=== PATIENT | female | born 1990 | race Caucasian/White ===

== ENCOUNTER → 2024-01-21 08:05 | Outpatient (CLI) | payer OTHER, SELFPAY ==
--- NOTE | 2024-01-21 08:07 | DI.US.S_ITS ---
PROCEDURE: US OB <= 14 WEEKS FETUS INDICATIONS: viability OUTSIDE/PRIOR DATING DATA: Last menstrual period (LMP): 11/17/2023. LMP-based estimated date of delivery (TAYLA): 08/23/2024. First dating scan (date and location): Today. Estimated date of delivery (TAYLA) from first dating scan: 08/20/2024. TECHNIQUE: Real-time scanning was performed of the fetus and maternal pelvic organs, with image documentation. Endovaginal scanning was also performed to better visualize the fetus and maternal ovaries. COMPARISON: None. FINDINGS: Heart rate is 182 beats per minute. [place]-rump length is 2.4 centimeters corresponding ultrasound age of 9 weeks. Yolk sac is seen. IMPRESSION: Living intrauterine gestation at an ultrasound age of 9 weeks. Dictated by: Davdi Workman M.D. on 01/21/2024 at 9:23 Approved by: David Workman M.D. on 01/21/2024 at 9:27
== END ==
PROVIDERS: Referring Provider Student in an Organized Health Care Education/Training Program; Visit Provider Student in an Organized Health Care Education/Training Program
DX: Z34.81 Encounter for supervision of other normal pregnancy, first trimester (principal); Z3A.09 9 weeks gestation of pregnancy
CPT/HCPCS: 76801

== ENCOUNTER → 2024-01-28 12:08 | Outpatient (CLI) | payer OTHER, SELFPAY ==
[2024-01-28 12:51] LABS: Add Manual Diff / Slide Review NO; Basophils Absolute Auto 100 /uL (0-100); Basophils Percent Auto 0.6 % (0-2); Eosinophils Absolute Auto 0 /uL (0-450); Eosinophils Percent Auto 0.5 % (2-4); Hematocrit 43.1 % (36-46); Hemoglobin 14.8 g/dL (12.0-16.0); Lymphocytes Absolute Auto 2100 /uL (1100-4500); Lymphocytes Percent Auto 24.1 % (25-40); Mean Corpuscular HGB Conc 34.3 % (30-36); Mean Corpuscular Hemoglobin 29.7 PG (26-34); Mean Corpuscular Volume 86.7 fL (80-100); Monocytes Absolute Auto 400 /uL (0-900); Monocytes Percent Auto 4.5 % (3-14); Neutrophils Absolute Auto 6000 /uL (1500-7000); Neutrophils Percent Auto 70.3 % (50-75); Platelet Count 228 X10^3/uL (150-400); Red Blood Cell Count 4.98 X10^6/uL (4.0-5.2); Red Cell Distribution Width 12.2 % (11.6-14.8); White Blood Cell Count 8.5 X10^3/uL (4.5-11.0)
[2024-01-28 13:13] LABS: Appearance Urine UA CLEAR; Bilirubin Urine UA NEGATIVE (NEGATIVE); Color Urine UA YELLOW; Glucose Urine UA NEGATIVE (Negative); Ketones Urine UA NEGATIVE (NEGATIVE); Leukocyte Esterase Urine UA 1+ (NEGATIVE); Nitrite Urine UA NEGATIVE (Negative); Occult Blood Urine UA NEGATIVE (Negative); Protein Urine UA NEGATIVE (Negative); Urobilinogen Urine UA 0.2 E.U./dL (0.2)
[2024-01-28 13:23] LABS: Alanine Aminotransferase 36 IU/L (<35); Albumin 4.3 g/dL (3.5-5.0); Albumin Globulin Ratio 1.6 (1.0-2.8); Alkaline Phosphatase 44 U/L (38-126); Aspartate Aminotransferase 28 IU/L (14-36); BUN Creatinine Ratio 13.2 (6-22); Bilirubin Total 0.5 mg/dL (0.2-1.3); Blood Urea Nitrogen 10 mg/dL (7-17); Calcium 8.9 mg/dL (8.4-10.2); Carbon Dioxide 20 mmol/L (22-32); Chloride 105 mmol/L (98-107); Estimated Glomerular Filt Rate > 60 mL/min (>60); Globulin 2.7 g/dL (1.7-4.1); Glucose 132 mg/dL (70-100); HEMOLYSIS < 15 (0-50); Potassium 3.8 mmol/L (3.4-5.1); Sodium 137 mmol/L (137-145); pH Urine UA 6.5 (4.5-8.0)
[2024-01-28 13:26] LABS: Urine Volume 10mL (spun)
[2024-01-28 13:27] LABS: Bacteria Urine None Seen; RBC Urine None Seen (0-5/HPF); Squamous Epithelial Cell Urine 0-1 /HPF (0-5/HPF); WBC Urine 1-5/HPF (0-5/HPF)
[2024-01-28 13:31] LABS: Hemoglobin A1C% w Est Avg Glu 4.8 % (4.0-6.0)
[2024-01-28 14:24] LABS: Urine N gonorrhoeae NOT DETECTED
[2024-01-28 14:28] LABS: Urine Chlamydia NOT DETECTED
[2024-01-28 17:35] LABS: Hepatitis B Surface Antigen NEGATIVE s/c (NEGATIVE); Rubella Antibody IgG 20.9 IU/mL (>15)
[2024-01-28 17:48] LABS: HIV 1 & 2 Ab/Ag 4th Gen Combo NEGATIVE (NEGATIVE); Hep C Virus Ab w/Reflex Quant NEGATIVE s/c (NEGATIVE)
[2024-01-29 08:10] LABS: RPR Screen Non Reactive (Non Reactive)
[2024-01-29 11:58] LABS: Varicella IgG Antibody 1456 index (Immune >165)
== END ==
LOC: LAB 12:09
PROVIDERS: PCP Student in an Organized Health Care Education/Training Program; Referring Provider Student in an Organized Health Care Education/Training Program; Visit Provider Student in an Organized Health Care Education/Training Program
DX: O09.511 Supervision of elderly primigravida, first trimester (principal); E28.2 Polycystic ovarian syndrome; Z98.84 Bariatric surgery status
CPT/HCPCS: 36415; 80053; 80055; 81003; 81015; 83036; 86787; 86803; 86850; 86900; 86901; 87086; 87389; 87491; 87591

== ENCOUNTER → 2024-04-16 12:58 | Outpatient (CLI) | payer OTHER, SELFPAY ==
[2024-04-16 13:27] LABS: Hematocrit 38.6 % (36-46); Hemoglobin 13.3 g/dL (12.0-16.0)
[2024-04-16 13:57] LABS: Alanine Aminotransferase 33 IU/L (<35); Albumin 3.2 g/dL (3.5-5.0); Albumin Globulin Ratio 1.4 (1.0-2.8); Alkaline Phosphatase 38 U/L (38-126); Aspartate Aminotransferase 23 IU/L (14-36); BUN Creatinine Ratio 10.2 (6-22); Bilirubin Total 0.6 mg/dL (0.2-1.3); Blood Urea Nitrogen 6 mg/dL (7-17); Calcium 8.6 mg/dL (8.4-10.2); Carbon Dioxide 21 mmol/L (22-32); Chloride 108 mmol/L (98-107); Estimated Glomerular Filt Rate > 60 mL/min (>60); Globulin 2.3 g/dL (1.7-4.1); Glucose 83 mg/dL (70-100); HEMOLYSIS < 15 (0-50); Potassium 3.9 mmol/L (3.4-5.1); Sodium 135 mmol/L (137-145); Total Protein 5.5 g/dL (6.3-8.2)
[2024-04-16 13:58] LABS: Iron 184 ug/dL (37-170)
[2024-04-16 14:06] LABS: Transferrin 227 mg/dL (206-381)
[2024-04-16 14:26] LABS: Ferritin 48 ng/mL (6-137)
[2024-04-16 15:08] LABS: Folate 9.9 ng/mL (2.76-20.0); HEMOLYSIS < 15 (0-50); Vitamin B12 495 pg/mL (239-931)
[2024-04-18 03:13] LABS: Percent Iron Saturation 65 % (15-50); Total Iron Binding Capacity 284 ug/dL (265-497)
== END ==
PROVIDERS: Referring Provider Student in an Organized Health Care Education/Training Program; Visit Provider Student in an Organized Health Care Education/Training Program
DX: Z98.84 Bariatric surgery status (principal); Z3A.24 24 weeks gestation of pregnancy
CPT/HCPCS: 36415; 80053; 82306; 82607; 82728; 82746; 83540; 83550; 83735; 85014; 85018

== ENCOUNTER → 2024-06-02 14:08 | Outpatient (CLI) | payer OTHER, SELFPAY ==
--- NOTE | 2024-06-02 14:09 | DI.US.S_ITS ---
PROCEDURE: US OB LIMITED INDICATIONS: Growth Scan M4hchcs OUTSIDE/PRIOR DATING DATA: Last menstrual period (LMP): 11/17/2023. LMP-based estimated date of delivery (TAYLA): 08/23/2024. First dating scan (date and location): 01/21/2024. Estimated date of delivery (TAYLA) from first dating scan: 08/20/2024. The calculations are made using the clinical TAYLA of 08/23/2024. TECHNIQUE: Real-time scanning was performed of the fetus, with image documentation and biometric measurements. Endovaginal scanning: Obtained COMPARISON: [facility], , OB <= 14 WEEKS FETUS, 01/21/2024, 8:38. FINDINGS: General: A single living intrauterine gestation is present. Presentation: Vertex. Placenta: Placental position is fundal , without previa. Amniotic fluid index: 17.7 cm, normal range is 5-24 cm. Single deepest vertical pocket is 6.3 cm. heart rate: 147 beats per minute. Maternal cervical canal: 3.7 cm long. Normal lower limit is 2.5 cm. biometrics: Biparietal diameter: 7.4 cm 29 weeks 5 days Head circumference: 26.8 cm 29 weeks 1 day Abdominal circumference: 24.8 cm 29 weeks 0 days Femur length: 5.5 cm 28 weeks 6 days Clinically estimated gestational age: 28 weeks 2 days Composite gestational age from present scan: 29 weeks 1 day Estimated weight and percentile: 1324 g 66th percentile Other: Not applicable. IMPRESSION: Single live intrauterine with gestational age of 29 weeks 1 day. growth and YAMILET are within normal limits. We strive to produce accurate, complete, and clear reports of imaging services. To assist us in improving patient care, this report was composed using standard report templates and voice recognition software. Therefore, it may contain abnormal punctuation, insertions and/or omissions. Occasional wrong-word or sound-alike substitutions may occur. Though we review the report and make efforts to correct it, we do recommend that the report be read carefully in proper context to recognize any text inaccuracies. Dictated by: Kya Gay M.D. on 06/02/2024 at 20:23 Approved by: Kya Gay M.D. on 06/02/2024 at 20:25
== END ==
LOC: US 14:09
PROVIDERS: PCP Student in an Organized Health Care Education/Training Program; Referring Provider Student in an Organized Health Care Education/Training Program; Visit Provider Student in an Organized Health Care Education/Training Program
DX: O26.13 Low weight gain in pregnancy, third trimester (principal); O99.843 Bariatric surgery status complicating pregnancy, third trimester; O99.213 Obesity complicating pregnancy, third trimester; Z3A.29 29 weeks gestation of pregnancy; Z68.42 Body mass index [BMI] 45.0-49.9, adult
CPT/HCPCS: 76815

== ENCOUNTER → 2024-06-04 | Outpatient (CLI) | payer OTHER, SELFPAY | PROVIDERS: PCP Student in an Organized Health Care Education/Training Program; Referring Provider Internal Medicine; Visit Provider Internal Medicine | DX: Z23 Encounter for immunization (principal) | CPT/HCPCS: 90471; 90656 ==

== ENCOUNTER → 2024-06-18 11:49 | Outpatient (CLI) | payer OTHER, SELFPAY | PROVIDERS: PCP Student in an Organized Health Care Education/Training Program; Visit Provider Student in an Organized Health Care Education/Training Program | DX: B37.9 Candidiasis, unspecified (principal); R31.9 Hematuria, unspecified; Z34.80 Encounter for supervision of other normal pregnancy, unspecified trimester | CPT/HCPCS: 87086; 87210 ==

== ENCOUNTER 2024-06-20 21:27 | Outpatient (CLI) | payer OTHER, SELFPAY ==
--- NOTE | 2024-06-20 21:52 | DI.US.S_ITS ---
PROCEDURE: US OB LIMITED INDICATIONS: bleeding OUTSIDE/PRIOR DATING DATA: Last menstrual period (LMP): 11/17/2023. LMP-based estimated date of delivery (TAYLA): 08/23/2024. First dating scan (date and location): 01/21/2024. Estimated date of delivery (TAYLA) from first dating scan: 08/20/2024. The calculations are made using the menstrual TAYLA of 08/23/2024. TECHNIQUE: Real-time scanning was performed of the fetus, with image documentation. COMPARISON: [facility], OB <= 14 WEEKS FETUS, 01/21/2024, 8:38. [facility], OB LIMITED, 06/02/2024, 14:19. FINDINGS: A single live intrauterine gestation is present. Presentation: Breech. Placenta: Placental position is right fundal, without previa. No findings of placental abruption can be seen Amniotic fluid index: 16 cm, normal range is 5-24 cm. Single deepest vertical pocket is 5.3 cm. heart rate: 135 beats per minute. Maternal cervical canal: 3.5 cm long. On these images, no funneling of the internal cervical os can be seen. Clinically estimated gestational age: 30 weeks 6 days IMPRESSION: No imaging explanation is found for this patient's presenting symptoms. Normal appearing cervix, 3.5 cm. No funneling of the internal cervical os can be seen. No findings of placental abruption are seen. Dictated by: Jacob Pillai M.D. on 06/20/2024 at 21:41 Approved by: Jacob Pillai M.D. on 06/20/2024 at 21:43
== END 2024-06-20 22:45 | disposition home or self-care (01) ==
LOC: LABOR 21:29 → OB 06-22 06:26
PROVIDERS: PCP Student in an Organized Health Care Education/Training Program; Referring Provider Student in an Organized Health Care Education/Training Program; Visit Provider Student in an Organized Health Care Education/Training Program
DX: O46.93 Antepartum hemorrhage, unspecified, third trimester (principal); Z3A.30 30 weeks gestation of pregnancy; Z98.84 Bariatric surgery status
CPT/HCPCS: 59025; 76815; G0378; G0379

== ENCOUNTER → 2024-07-01 07:30 | Outpatient (CLI) | payer OTHER, SELFPAY ==
--- NOTE | 2024-07-01 07:30 | DI.US.S_ITS ---
PROCEDURE: US OB LIMITED INDICATIONS: EFW OUTSIDE/PRIOR DATING DATA: Last menstrual period (LMP): 11/17/2023. LMP-based estimated date of delivery (TAYLA): 08/23/2024. Working TAYLA First dating scan (date and location): 01/21/2024. Estimated date of delivery (TAYLA) from first dating scan: 08/20/2024. TECHNIQUE: Real-time scanning was performed of the fetus, with image documentation. COMPARISON: [facility], OB LIMITED, 06/20/2024, 22:21. FINDINGS: A single living intrauterine gestation is present. Presentation: Breech. Placenta: Placental position is posterior, without previa. Amniotic fluid index: 20.1 cm, normal range is 5-24 cm. Single deepest vertical pocket is 6.9 cm. heart rate: 140 beats per minute. Maternal cervical canal: 3 cm long. Normal lower limit is 2.5 cm. Clinically estimated gestational age: 32 weeks and 3 days Head circumference is 30 cm, 33 weeks and 1 day BPD is 8.1 cm, 32 weeks and 5 days Abdominal circumference is 28.1 cm, 32 weeks and 1 day Femur length is 6.4 cm, 33 weeks and 1 day Estimated gestational age from initial scan: 32 weeks and 6 days. EFW is at the 45th percentile, 2010 g. IMPRESSION: EFW at the 45th percentile. Normal YAMILET. Living intrauterine gestation in breech presentation. Dictated by: David Workman M.D. on 07/01/2024 at 13:47 Approved by: David Workman M.D. on 07/01/2024 at 13:48
== END ==
PROVIDERS: PCP Student in an Organized Health Care Education/Training Program; Referring Provider Student in an Organized Health Care Education/Training Program; Visit Provider Student in an Organized Health Care Education/Training Program
DX: O32.1XX0 Maternal care for breech presentation, not applicable or unspecified (principal); Z3A.32 32 weeks gestation of pregnancy
CPT/HCPCS: 76815

== ENCOUNTER 2024-07-13 07:20 | Outpatient (CLI) | payer OTHER, SELFPAY ==
--- NOTE | 2024-07-13 08:13 | P.TNLD_ITS ---
Visit Information Visit Information Date of evaluation: 07/13/24 Primary OB Provider: Tatyana Steven On-call OB Provider: Tatyana Steven Reason for Evaluation: Yes non-stress test Comments/Additional reasons for admission: NST for BMI, hx of gastric sleeve PFSH Medical History (Updated 02/16/24 @ 15:48 by Kellie Rivera) GERD (gastroesophageal reflux disease) PCOS (polycystic ovarian syndrome) (~2007) Sfxbi-Vqmbbndyu-Bnmjp (WPW) pattern Surgical History (Updated 02/16/24 @ 15:48 by Kellie Rivera) Anesthesia H/O endoscopy [place] teeth extracted History of cholecystectomy (~2018) History of cardiac radiofrequency ablation H/O gastric sleeve (~2022) Family History (Updated 02/16/24 @ 15:51 by Kellie Rivera) Mother Hypertension Skin cancer Father Lung cancer Hypertension Heart disease Myocardial infarction Grandmother Breast cancer Grandfather Pancreatic cancer Grandmother Heart disease Hx of CABG Grandfather Diabetes mellitus Kidney failure Aunt Hx of migraines Family/Other Multiple sclerosis Brother No problems noted. 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/hazards: Yes special brent needs: No travel history: over 6 months ago seatbelt use: always helmet use: Yes water heater temp set < 120 deg: Yes working smoke detector in home: Yes fire extinguisher in home: Yes carbon monox detector in home: Yes firearms in home: Yes (Will get a safe before baby is born) do you feel safe at home: Yes Smoking Status: Former smoker (quit a long time ago) Tobacco: How many years used: 1 second hand exposure: No alcohol intake: former (rarely when not ) substance use type: does not use during the past year weight has: decreased > 10 lbs (Gastric sleeve surgery 12/2022) well-balanced diet: daily or most days daily servings fruits/ve or more times/day caffeine: Yes (aware of 200mg limit) Type(s) of exercise: walking and occasional exercise Evaluation Evaluation Baseline heart rate: 135 Variability: Average (6-10) monitor accelerations: Present Monitor Decelerations: Absent Category of Tracing: Reactive Diagnosis, Plan/Disposition Plan/Disposition Plan: Reactive NST @ 34 weeks. Continue weekly. OB Disposition: home
== END 2024-07-13 08:15 | disposition home or self-care (01) ==
LOC: LABOR 08:47 → OB 07-16 10:48
PROVIDERS: PCP Student in an Organized Health Care Education/Training Program; Referring Provider Student in an Organized Health Care Education/Training Program; Visit Provider Student in an Organized Health Care Education/Training Program
DX: O99.843 Bariatric surgery status complicating pregnancy, third trimester (principal); Z3A.34 34 weeks gestation of pregnancy
CPT/HCPCS: 59025; G0378; G0379

== ENCOUNTER 2024-07-20 07:19 | Outpatient (CLI) | payer OTHER, SELFPAY | END 2024-07-20 08:22 | disposition home or self-care (01) | LOC: LABOR 08:01 → OB 07-21 11:07 | PROVIDERS: PCP Student in an Organized Health Care Education/Training Program; Referring Provider Student in an Organized Health Care Education/Training Program; Visit Provider Student in an Organized Health Care Education/Training Program | DX: O99.843 Bariatric surgery status complicating pregnancy, third trimester (principal); Z3A.35 35 weeks gestation of pregnancy | CPT/HCPCS: 59025; G0378; G0379 ==

== ENCOUNTER → 2024-07-21 09:02 | Outpatient (CLI) | payer OTHER, SELFPAY ==
[2024-07-21 09:37] LABS: Add Manual Diff / Slide Review NO; Basophils Absolute Auto 100 /uL (0-100); Basophils Percent Auto 0.7 % (0-2); Eosinophils Absolute Auto 100 /uL (0-450); Eosinophils Percent Auto 0.5 % (2-4); Hematocrit 40.4 % (36-46); Hemoglobin 13.6 g/dL (12.0-16.0); Lymphocytes Absolute Auto 3100 /uL (1100-4500); Lymphocytes Percent Auto 26.2 % (25-40); Mean Corpuscular HGB Conc 33.6 % (30-36); Mean Corpuscular Hemoglobin 29.3 PG (26-34); Mean Corpuscular Volume 87.2 fL (80-100); Monocytes Absolute Auto 900 /uL (0-900); Monocytes Percent Auto 7.4 % (3-14); Neutrophils Absolute Auto 7600 /uL (1500-7000); Neutrophils Percent Auto 65.2 % (50-75); Platelet Count 228 X10^3/uL (150-400); Red Blood Cell Count 4.64 X10^6/uL (4.0-5.2); Red Cell Distribution Width 12.7 % (11.6-14.8); White Blood Cell Count 11.7 X10^3/uL (4.5-11.0)
[2024-07-21 09:43] LABS: Alanine Aminotransferase 22 IU/L (<35); Albumin 3.7 g/dL (3.5-5.0); Albumin Globulin Ratio 1.2 (1.0-2.8); Alkaline Phosphatase 84 U/L (38-126); Aspartate Aminotransferase 40 IU/L (14-36); BUN Creatinine Ratio 21.7 (6-22); Bilirubin Total 0.5 mg/dL (0.2-1.3); Blood Urea Nitrogen 13 mg/dL (7-17); Calcium 9.2 mg/dL (8.4-10.2); Carbon Dioxide 17 mmol/L (22-32); Chloride 109 mmol/L (98-107); Estimated Glomerular Filt Rate > 60 mL/min (>60); Globulin 3.1 g/dL (1.7-4.1); Glucose 80 mg/dL (70-100); HEMOLYSIS 33 (0-50); HEMOLYSIS < 15 (0-50); Iron 91 ug/dL (37-170); Magnesium 1.8 mg/dL (1.6-2.3); Potassium 3.9 mmol/L (3.4-5.1); Sodium 134 mmol/L (137-145); Total Protein 6.8 g/dL (6.3-8.2)
[2024-07-21 09:54] LABS: Percent Iron Saturation 22 % (15-50); Total Iron Binding Capacity 412 ug/dL (265-497); Transferrin 389 mg/dL (206-381)
[2024-07-21 10:00] LABS: Vitamin D 25 Hydroxy (D3) 44.5 ng/mL (30.0-100.0)
[2024-07-21 10:18] LABS: Ferritin 8 ng/mL (6-137)
[2024-07-21 10:50] LABS: Folate 6.2 ng/mL (2.76-20.0); Vitamin B12 330 pg/mL (239-931)
== END ==
PROVIDERS: PCP Student in an Organized Health Care Education/Training Program; Referring Provider Student in an Organized Health Care Education/Training Program; Visit Provider Student in an Organized Health Care Education/Training Program
DX: Z34.80 Encounter for supervision of other normal pregnancy, unspecified trimester (principal); Z90.3 Acquired absence of stomach [part of]
CPT/HCPCS: 80053; 82306; 82607; 82728; 82746; 83540; 83550; 83735; 85025

== ENCOUNTER 2024-07-24 15:25 | Outpatient (CLI) | payer OTHER, SELFPAY ==
[2024-07-24] MEDS: LACTATED RINGERS 1,000 ML 1000 ML IV (16:00)
[2024-07-24 16:18] LABS: Add Manual Diff / Slide Review NO; Basophils Absolute Auto 0 /uL (0-100); Basophils Percent Auto 0.3 % (0-2); Eosinophils Absolute Auto 0 /uL (0-450); Eosinophils Percent Auto 0.4 % (2-4); Hematocrit 39.7 % (36-46); Hemoglobin 13.4 g/dL (12.0-16.0); Lymphocytes Absolute Auto 2600 /uL (1100-4500); Lymphocytes Percent Auto 24.1 % (25-40); Mean Corpuscular HGB Conc 33.7 % (30-36); Mean Corpuscular Hemoglobin 29.5 PG (26-34); Mean Corpuscular Volume 87.6 fL (80-100); Monocytes Absolute Auto 800 /uL (0-900); Neutrophils Absolute Auto 7500 /uL (1500-7000); Neutrophils Percent Auto 68.2 % (50-75); Platelet Count 233 X10^3/uL (150-400); Red Blood Cell Count 4.53 X10^6/uL (4.0-5.2); Red Cell Distribution Width 12.6 % (11.6-14.8); White Blood Cell Count 10.9 X10^3/uL (4.5-11.0)
[2024-07-24 16:25] LABS: INR 0.9 (0.9-1.3); Prothrombin Time 10.6 SECONDS (9.4-12.5)
[2024-07-24 16:28] LABS: PTT Partial Thromboplastin Tim 29 SECONDS (25.1-36.5)
[2024-07-24 16:29] LABS: Alanine Aminotransferase 21 IU/L (<35); Albumin 3.3 g/dL (3.5-5.0); Albumin Globulin Ratio 1.3 (1.0-2.8); Alkaline Phosphatase 93 U/L (38-126); Aspartate Aminotransferase 25 IU/L (14-36); BUN Creatinine Ratio 15.3 (6-22); Bilirubin Total 0.5 mg/dL (0.2-1.3); Blood Urea Nitrogen 11 mg/dL (7-17); Calcium 9.5 mg/dL (8.4-10.2); Carbon Dioxide 21 mmol/L (22-32); Chloride 108 mmol/L (98-107); Estimated Glomerular Filt Rate > 60 mL/min (>60); Globulin 2.5 g/dL (1.7-4.1); Glucose 74 mg/dL (70-100); HEMOLYSIS < 15 (0-50); Potassium 4.1 mmol/L (3.4-5.1); Sodium 134 mmol/L (137-145); Total Protein 5.8 g/dL (6.3-8.2)
[2024-07-24 16:30] LABS: Ammonia (NH3) < 9 umol/L (9-30)
[2024-07-24 16:35] LABS: Creatinine Urine Random 148.49 mg/dL; Protein (Total) Urine Random 7 mg/dL (0-12); Protein Creatinine Ratio Urine 0.04 GRAM/24H
[2024-07-24 16:42] LABS: Fibrinogen 570 mg/dL (238-498)
--- NOTE | 2024-07-24 16:54 | PM.OBTRLD ---
Visit Information Visit Information Date of evaluation: 07/24/24 Primary OB Provider: Tatyana Steven Reason for Evaluation: Yes non-stress test and Yes other Comments/Additional reasons for admission: Patient presented with nausea, vomiting, and general feeling of being unwell for past few days. She had labs done last week with elevated liver enzymes. is complicated by breech positioning, hx of gastric bypass, and recurrent gout. Vital Signs Vital Signs: BP 113/62 FOR[facility], [facility] Medical History (Updated 07/24/24 @ 14:31 by Tatyana Steven MD) GERD (gastroesophageal reflux disease) PCOS (polycystic ovarian syndrome) (~2007) Bpawu-Mqwdsziqm-Klixq (WPW) pattern Surgical History (Updated 07/16/24 @ 11:25 by Tatyana Steven MD) Anesthesia H/O endoscopy [place] teeth extracted History of cholecystectomy (~2018) History of cardiac radiofrequency ablation H/O gastric sleeve (~2022) Family History (Updated 02/16/24 @ 15:51 by Kellie Rivera) Mother Hypertension Skin cancer Father Lung cancer Hypertension Heart disease Myocardial infarction Grandmother Breast cancer Grandfather Pancreatic cancer Grandmother Heart disease Hx of CABG Grandfather Diabetes mellitus Kidney failure Aunt Hx of migraines Family/Other Multiple sclerosis Brother No problems noted. 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/hazards: Yes special brent needs: No travel history: over 6 months ago seatbelt use: always helmet use: Yes water heater temp set < 120 deg: Yes working smoke detector in home: Yes fire extinguisher in home: Yes carbon monox detector in home: Yes firearms in home: Yes (Will get a safe before baby is born) do you feel safe at home: Yes Smoking Status: Former smoker (quit a long time ago) Tobacco: How many years used: 1 second hand exposure: No alcohol intake: former (rarely when not ) substance use type: does not use during the past year weight has: decreased > 10 lbs (Gastric sleeve surgery 12/2022) well-balanced diet: daily or most days daily servings fruits/ve or more times/day caffeine: Yes (aware of 200mg limit) Type(s) of exercise: walking and occasional exercise Review of Systems Review of Systems ROS: Yes All systems reviewed with the patient and are negative except as otherwise documented Objective Labs 07/24/24 16:00 07/24/24 16:00 Labs: Laboratory Results - last 24 hr 07/24/24 16:00 WBC 10.9 RBC 4.53 Hgb 13.4 Hct 39.7 MCV 87.6 MCH 29.5 MCHC 33.7 RDW 12.6 Plt Count 233 Neut % (Auto) 68.2 Lymph % (Auto) 24.1 L [place] % (Auto) 7.0 Eos % (Auto) 0.4 L Baso % (Auto) 0.3 Neut # (Auto) 7500 H Lymph # (Auto) 2600 [place] # (Auto) 800 Eos # (Auto) 0 Baso # (Auto) 0 PT 10.6 INR 0.9 APTT 29 Fibrinogen 570 H Sodium 134 L Potassium 4.1 Chloride 108 H Carbon Dioxide 21 L BUN 11 Creatinine 0.72 Estimated GFR > 60 BUN/Creatinine Ratio 15.3 Glucose 74 Uric Acid 5.0 Calcium 9.5 Total Bilirubin 0.5 AST 25 ALT 21 Alkaline Phosphatase 93 Ammonia < 9 L Total Protein 5.8 L Albumin 3.3 L Globulin 2.5 Albumin/Globulin Ratio 1.3 U Random Total Protein 7 Urine Creatinine 148.49 Protein/Creatinin Ratio 0.04 Evaluation Evaluation Baseline heart rate: 135 Variability: Average (6-10) monitor accelerations: Present Monitor Decelerations: Absent Diagnosis, Plan/Disposition Plan/Disposition Plan: CBC, CMP wnl. Additional labs for concern of acute fatty liver of negative as well. P/C ratio 0.04. Received 1L of fluid for ongoing vomiting. Safe for discharge home. OB Disposition: home
== END 2024-07-24 17:25 | disposition home or self-care (01) ==
LOC: OB 07-27 11:45
PROVIDERS: PCP Student in an Organized Health Care Education/Training Program; Referring Provider Student in an Organized Health Care Education/Training Program; Visit Provider Student in an Organized Health Care Education/Training Program
DX: O26.893 Other specified pregnancy related conditions, third trimester (principal); R74.01 Elevation of levels of liver transaminase levels; O99.843 Bariatric surgery status complicating pregnancy, third trimester; Z3A.35 35 weeks gestation of pregnancy
CPT/HCPCS: 36415; 59025; 80053; 82140; 82570; 84156; 84550; 85025; 85384; 85610; 85670; 85730; 96360; G0378; G0379

== ENCOUNTER 2024-07-28 09:52 | Outpatient (CLI) | payer OTHER, SELFPAY | END 2024-07-28 10:34 | disposition home or self-care (01) | LOC: LABOR 10:32 → OB 08-02 09:29 | PROVIDERS: PCP Student in an Organized Health Care Education/Training Program; Referring Provider Student in an Organized Health Care Education/Training Program; Visit Provider Student in an Organized Health Care Education/Training Program | DX: O99.213 Obesity complicating pregnancy, third trimester (principal); O99.843 Bariatric surgery status complicating pregnancy, third trimester; Z3A.36 36 weeks gestation of pregnancy | CPT/HCPCS: 59025; 87653; G0378; G0379 ==

== ENCOUNTER → 2024-07-28 11:07 | Outpatient (CLI) | payer OTHER, SELFPAY ==
[2024-07-29 11:45] LABS: Strep Grp B PCR POS for Grp B Strep
== END ==
PROVIDERS: PCP Student in an Organized Health Care Education/Training Program; Referring Provider Student in an Organized Health Care Education/Training Program; Visit Provider Student in an Organized Health Care Education/Training Program
DX: Z3A.36 36 weeks gestation of pregnancy (principal)
CPT/HCPCS: 87653

== ENCOUNTER 2024-08-03 12:11 | Outpatient (CLI) | payer OTHER, SELFPAY ==
--- NOTE | 2024-08-03 13:19 | DI.US.S_ITS ---
PROCEDURE: US OB LIMITED INDICATIONS: Failed Non-stress test OUTSIDE/PRIOR DATING DATA: Last menstrual period (LMP): 11/17/2023 LMP-based estimated date of delivery (TAYLA): 08/23/2024 First dating scan (date and location): 01/21/2024 Estimated date of delivery (TAYLA) from first dating scan: 08/20/2024 The calculations are made using the working TAYLA of 08/23/2024. TECHNIQUE: Real-time scanning was performed of the fetus, with image documentation and biometric measurements. Biophysical profile was also obtained. Endovaginal scanning: Not performed COMPARISON: [facility], OB LIMITED, 07/01/2024, 7:37. FINDINGS: General: A single living intrauterine gestation is present. Presentation: Vertex Placenta: Placental position is posterior, without previa. Amniotic fluid index: 13.9 cm, normal range is 5-24 cm. Single deepest vertical pocket is 5.8 cm. heart rate: 150 beats per minute. Maternal cervical canal: Closed and measures 4.5 cm long. Normal lower limit is 2.5 cm. biometrics: Biparietal diameter: 8.9 cm, 36 weeks, 1 day. Head circumference: 32.8 cm, 37 weeks, 2 days. Abdominal circumference: 33.6 cm, 37 weeks, 3 days. Femur length: 7.0 cm, 36 weeks, 0 day. Clinically estimated gestational age: 37 weeks, 1 day. Composite gestational age from present scan: 36 weeks, 5 days. Estimated weight and percentile: 3069 g, 51% Biophysical profile: Tone: 2 points. Movement: 2 points. Respiration: 2 points. Largest pocket of fluid: 2 points. IMPRESSION: 1. Single live intrauterine gestation with fetus in vertex presentation. heart rate is 150 beats per minute. Normal YAMILET at 13.9 cm. Cervix is closed and measures 4.5 cm in length. 2. Estimated weight is at 51%. 3. biophysical profile score is 8/8. 4. facial profile, chest, stomach and bilateral kidneys are visualized and are within normal limits. We strive to produce accurate, complete, and clear reports of imaging services. To assist us in improving patient care, this report was composed using standard report templates and voice recognition software. Therefore, it may contain abnormal punctuation, insertions and/or omissions. Occasional wrong-word or sound-alike substitutions may occur. Though we review the report and make efforts to correct it, we do recommend that the report be read carefully in proper context to recognize any text inaccuracies. Dictated by: Monico Mccray M.D. on 08/03/2024 at 14:43 Approved by: Monico Mccray M.D. on 08/03/2024 at 14:46
== END 2024-08-03 14:25 | disposition home or self-care (01) ==
LOC: LABOR 12:19 → OB 08-05 12:48
PROVIDERS: PCP Student in an Organized Health Care Education/Training Program; Referring Provider Student in an Organized Health Care Education/Training Program; Visit Provider Student in an Organized Health Care Education/Training Program
DX: O99.843 Bariatric surgery status complicating pregnancy, third trimester (principal); O99.013 Anemia complicating pregnancy, third trimester; D64.9 Anemia, unspecified; O99.891 Other specified diseases and conditions complicating pregnancy; R74.8 Abnormal levels of other serum enzymes; Z3A.37 37 weeks gestation of pregnancy
CPT/HCPCS: 59025; 76815; 76819; 80053; 82570; 84156; 85025; 96365; G0378; G0379; Q0138

== ENCOUNTER → 2024-08-03 12:13 | Outpatient (CLI) | payer OTHER, SELFPAY ==
[2024-08-03 12:52] LABS: Add Manual Diff / Slide Review NO; Basophils Absolute Auto 100 /uL (0-100); Basophils Percent Auto 0.6 % (0-2); Eosinophils Absolute Auto 0 /uL (0-450); Eosinophils Percent Auto 0.4 % (2-4); Hematocrit 41.3 % (36-46); Lymphocytes Absolute Auto 2000 /uL (1100-4500); Lymphocytes Percent Auto 21.9 % (25-40); Mean Corpuscular HGB Conc 33.9 % (30-36); Mean Corpuscular Hemoglobin 29.5 PG (26-34); Mean Corpuscular Volume 87.1 fL (80-100); Monocytes Absolute Auto 600 /uL (0-900); Monocytes Percent Auto 6.6 % (3-14); Neutrophils Absolute Auto 6500 /uL (1500-7000); Neutrophils Percent Auto 70.5 % (50-75); Platelet Count 222 X10^3/uL (150-400); Red Blood Cell Count 4.74 X10^6/uL (4.0-5.2); Red Cell Distribution Width 12.6 % (11.6-14.8); White Blood Cell Count 9.2 X10^3/uL (4.5-11.0)
[2024-08-03 13:06] LABS: Alanine Aminotransferase 24 IU/L (<35); Albumin 3.5 g/dL (3.5-5.0); Albumin Globulin Ratio 1.2 (1.0-2.8); Alkaline Phosphatase 95 U/L (38-126); Aspartate Aminotransferase 29 IU/L (14-36); BUN Creatinine Ratio 14.5 (6-22); Bilirubin Total 0.5 mg/dL (0.2-1.3); Blood Urea Nitrogen 11 mg/dL (7-17); Carbon Dioxide 19 mmol/L (22-32); Chloride 109 mmol/L (98-107); Estimated Glomerular Filt Rate > 60 mL/min (>60); Glucose 134 mg/dL (70-100); HEMOLYSIS < 15 (0-50); Potassium 3.8 mmol/L (3.4-5.1); Sodium 134 mmol/L (137-145); Total Protein 6.5 g/dL (6.3-8.2)
[2024-08-03 14:46] LABS: Creatinine Urine Random 305.11 mg/dL; Protein (Total) Urine Random < 5 mg/dL (0-12); Protein Creatinine Ratio Urine 0.01 GRAM/24H
== END ==
PROVIDERS: PCP Student in an Organized Health Care Education/Training Program; Referring Provider Student in an Organized Health Care Education/Training Program; Visit Provider Student in an Organized Health Care Education/Training Program
DX: R74.8 Abnormal levels of other serum enzymes (principal); Z3A.36 36 weeks gestation of pregnancy
CPT/HCPCS: 80053; 82570; 84156; 85025

== ENCOUNTER → 2024-08-10 11:53 | Outpatient (CLI) | payer OTHER, SELFPAY ==
[2024-08-10 12:37] LABS: Add Manual Diff / Slide Review NO; Basophils Absolute Auto 0 /uL (0-100); Basophils Percent Auto 0.5 % (0-2); Eosinophils Absolute Auto 100 /uL (0-450); Eosinophils Percent Auto 0.6 % (2-4); Hematocrit 40.9 % (36-46); Hemoglobin 13.8 g/dL (12.0-16.0); Lymphocytes Absolute Auto 2400 /uL (1100-4500); Lymphocytes Percent Auto 24.5 % (25-40); Mean Corpuscular HGB Conc 33.7 % (30-36); Mean Corpuscular Hemoglobin 29.5 PG (26-34); Mean Corpuscular Volume 87.5 fL (80-100); Monocytes Absolute Auto 600 /uL (0-900); Monocytes Percent Auto 6.1 % (3-14); Neutrophils Absolute Auto 6700 /uL (1500-7000); Neutrophils Percent Auto 68.3 % (50-75); Platelet Count 218 X10^3/uL (150-400); Red Blood Cell Count 4.67 X10^6/uL (4.0-5.2); Red Cell Distribution Width 12.9 % (11.6-14.8); White Blood Cell Count 9.9 X10^3/uL (4.5-11.0)
[2024-08-10 13:11] LABS: Alanine Aminotransferase 25 IU/L (<35); Albumin 3.2 g/dL (3.5-5.0); Albumin Globulin Ratio 1.2 (1.0-2.8); Alkaline Phosphatase 96 U/L (38-126); Aspartate Aminotransferase 29 IU/L (14-36); Bilirubin Total 0.4 mg/dL (0.2-1.3); Blood Urea Nitrogen 12 mg/dL (7-17); Calcium 9.2 mg/dL (8.4-10.2); Carbon Dioxide 20 mmol/L (22-32); Chloride 107 mmol/L (98-107); Estimated Glomerular Filt Rate > 60 mL/min (>60); Globulin 2.6 g/dL (1.7-4.1); Glucose 130 mg/dL (70-100); HEMOLYSIS < 15 (0-50); Potassium 4.1 mmol/L (3.4-5.1); Sodium 134 mmol/L (137-145); Total Protein 5.8 g/dL (6.3-8.2)
[2024-08-10 14:51] LABS: Creatinine Urine Random 180.87 mg/dL; Protein (Total) Urine Random 8 mg/dL (0-12); Protein Creatinine Ratio Urine 0.04 GRAM/24H
== END ==
PROVIDERS: PCP Student in an Organized Health Care Education/Training Program; Referring Provider Student in an Organized Health Care Education/Training Program; Visit Provider Student in an Organized Health Care Education/Training Program
DX: Z34.80 Encounter for supervision of other normal pregnancy, unspecified trimester (principal); R74.8 Abnormal levels of other serum enzymes
CPT/HCPCS: 36415; 80053; 82570; 84156; 85025

== ENCOUNTER 2024-08-10 11:54 | Observation (INO) | payer OTHER, SELFPAY | END 2024-08-10 13:18 | disposition home or self-care (01) | PROVIDERS: Admitting Provider Student in an Organized Health Care Education/Training Program; PCP Student in an Organized Health Care Education/Training Program; Referring Provider Student in an Organized Health Care Education/Training Program; Visit Provider Student in an Organized Health Care Education/Training Program | DX: O09.523 Supervision of elderly multigravida, third trimester (principal); O99.843 Bariatric surgery status complicating pregnancy, third trimester; Z3A.38 38 weeks gestation of pregnancy | CPT/HCPCS: 36415; 59025; 80053; 82570; 84156; 85025; 96365; G0378; G0379; Q0138 ==

== ENCOUNTER 2024-08-17 16:54 | Inpatient (IN) | payer OTHER, SELFPAY ==
[2024-08-17] MEDS: miSOPROStoL 25 MCG TABLET VAG ×2 (17:39→22:45)
[2024-08-17 18:33] LABS: Add Manual Diff / Slide Review NO; Basophils Absolute Auto 0 /uL (0-100); Basophils Percent Auto 0.5 % (0-2); Eosinophils Absolute Auto 0 /uL (0-450); Eosinophils Percent Auto 0.3 % (2-4); Hematocrit 40.2 % (36-46); Hemoglobin 13.5 g/dL (12.0-16.0); Lymphocytes Absolute Auto 1900 /uL (1100-4500); Lymphocytes Percent Auto 20.6 % (25-40); Mean Corpuscular HGB Conc 33.6 % (30-36); Mean Corpuscular Hemoglobin 29.7 PG (26-34); Mean Corpuscular Volume 88.5 fL (80-100); Monocytes Absolute Auto 500 /uL (0-900); Monocytes Percent Auto 5.9 % (3-14); Neutrophils Absolute Auto 6600 /uL (1500-7000); Neutrophils Percent Auto 72.7 % (50-75); Platelet Count 197 X10^3/uL (150-400); Red Blood Cell Count 4.54 X10^6/uL (4.0-5.2); Red Cell Distribution Width 13.1 % (11.6-14.8); White Blood Cell Count 9.1 X10^3/uL (4.5-11.0)
--- NOTE | 2024-08-17 20:24 | P.HPOB_ITS ---
OB HPI Date/Time Date of admission: 08/17/24 Date Patient Seen: 08/17/24 Time Patient Seen: 17:30 History of Present Condition Chief complaint: Induction TAYLA Calculator 2 Estimated Delivery Date Method Current WG Current Estimate 08/23/24 LMP (Certain) 39w 1d : 2 Para: 0 Narrative: This is a 33 yo at 39w1d here for IOL. complicated by AMA (turning 34 tomorrow 08/18), hx of gastric sleeve surgery (12/2022), PCOS, depression/anxiety, gout, chronic nausea/vomiting, GBS positive, and unstable lie. Baby was breech until 37 weeks. She had elevated LFTs 07/21 that resolved on subsequent labs. Blood pressure and P/C ratio have been normal throughout. MFM was consulted and seen. Growth scans and extensive labs in setting of gastric sleeve surgery were ordered each trimester. Most recent growth 3069 grams 51st percentile on 08/03. Glucose tolerance completed with two weeks of glucose monitoring and within normal limits. care: good care Dating criteria OB: LMP confirmed by 1st trimester US Ultrasounds: normal 1st trimester US and normal mid trimester US Obstetrical complications: other (as above) Medical complications OB: other (as above) Indications Indication for induction OB: maternal discomfort and other (AMA) Preadmission Labs Last OB Lab Results: 2 Blood Type A Positive 08/17/24 18:05 Antibody Screen Negative 08/17/24 18:05 Hct 40.2 % (36-46) 08/17/24 18:05 Hgb 13.5 g/dL (12.0-16.0) 08/17/24 18:05 Hep Bs Antigen Negative s/c (NEGATIVE) 01/28/24 12:28 Hepatitis C Antibody Negative s/c (NEGATIVE) 01/28/24 12:28 Rubella Antibody 20.9 IU/mL (>15) 01/28/24 12:28 VZV IgG Antibody 1456 index (Immune >165) 01/28/24 12:28 Hemoglobin A1c 4.8 % (4.0-6.0) 01/28/24 12:28 Group B Strep (PCR) Pos for grp b strep H 07/28/24 11:07 Genetic Screens: Cell-free DNA: Normal Prior (ies) Past Pregnancies Del. Date GA/Weeks Labor Lgth Wt Sex Route Outcome Anesthesia Place Delv Breastfeed Preg Comp Name 12/01/22 4-5 spontaneous Delivery Date: 12/01/22 Last Updated by: Tasha Ruiz RN Not developing well, required D&C Evaluation Evaluation Baseline heart rate: 135 Variability: Moderate (11-25) monitor accelerations: Present Monitor Decelerations: Absent Uterine Contraction Intensity: Mild Category of Tracing: Reactive Status: Category l Dilation (cm): 1 Effacement (%): 50 Dilation: 1-2 cm Effacement: 40-50% station: -3 Position of cervix: posterior Consistency: soft Sykes score: 4 PFSH Medical History (Updated 07/24/24 @ 14:31 by Tatyana Steven MD) GERD (gastroesophageal reflux disease) PCOS (polycystic ovarian syndrome) (~2007) Yzocq-Szojpvehi-Mxsvm (WPW) pattern Surgical History (Updated 07/16/24 @ 11:25 by Tatyana Steven MD) Anesthesia H/O endoscopy [place] teeth extracted History of cholecystectomy (~2018) History of cardiac radiofrequency ablation H/O gastric sleeve (~2022) Family History (Updated 02/16/24 @ 15:51 by Kellie Rivera) Mother Hypertension Skin cancer Father Lung cancer Hypertension Heart disease Myocardial infarction Grandmother Breast cancer Grandfather Pancreatic cancer Grandmother Heart disease Hx of CABG Grandfather Diabetes mellitus Kidney failure Aunt Hx of migraines Family/Other Multiple sclerosis Brother No problems noted. 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/hazards: Yes special brent needs: No travel history: over 6 months ago seatbelt use: always helmet use: Yes water heater temp set < 120 deg: Yes working smoke detector in home: Yes fire extinguisher in home: Yes carbon monox detector in home: Yes firearms in home: Yes (Will get a safe before baby is born) do you feel safe at home: Yes Smoking Status: Never smoker Tobacco: How many years used: 1 second hand exposure: No alcohol intake: former (rarely when not ) substance use type: does not use during the past year weight has: decreased > 10 lbs (Gastric sleeve surgery 12/2022) well-balanced diet: daily or most days daily servings fruits/ve or more times/day caffeine: Yes (aware of 200mg limit) Type(s) of exercise: walking and occasional exercise Meds Home Medications and Allergies Home Medications Medication Instructions Recorded Confirmed Type bupropion HCl 300 mg 24 hr tablet, 300 mg PO DAILY 12/24/23 08/13/24 History extended release lansoprazole 30 mg capsule,delayed 30 mg PO DAILY 12/24/23 08/13/24 History release ondansetron 8 mg disintegrating 8 mg PO 3XD 12/24/23 08/13/24 History tablet rizatriptan 5 mg disintegrating See Rx Instructions PO .COMPLEX 12/24/23 08/13/24 History tablet sertraline 50 mg tablet 50 mg PO DAILY 12/24/23 08/13/24 History sour francis extract 1,000 mg mg PO DAILY 12/24/23 08/13/24 History capsule doxylamine succinate 25 mg tablet 12.5 mg PO DAILY Sleep/nausea 02/13/24 08/13/24 History (Unisom (doxylamine)) iron, carbonyl mg PO Gastric Sleeve 02/13/24 08/13/24 History vitamin with calcium 1 tab PO DAILY 02/13/24 08/13/24 History no.72-iron 27 mg-folic acid 1 mg tablet ( Vitamins Plus Low Iron) pyridoxine (vitamin B6) 100 mg 100 mg PO Nausea 02/13/24 08/13/24 History tablet (Vitamin B-6) prednisone 20 mg tablet 40 mg (2 x 20 mg) PO DAILY #10 tabs 03/04/24 08/13/24 Rx prednisone 10 mg tablet 10 mg PO DAILY #7 tabs 03/12/24 08/13/24 Rx prednisone 2.5 mg tablet 2.5 mg PO DAILY #7 tabs 03/12/24 08/13/24 Rx prednisone 20 mg tablet 20 mg PO DAILY #7 tabs 03/12/24 08/13/24 Rx prednisone 5 mg tablet 5 mg PO DAILY #7 tabs 03/12/24 08/13/24 Rx colchicine 0.6 mg tablet 0.6 mg PO DAILY #90 tabs 05/07/24 08/13/24 Rx hydroxyzine HCl 25 mg tablet 25 mg PO TID PRN anxiety #90 tabs 05/07/24 08/13/24 Rx ondansetron 4 mg disintegrating 4 mg PO Q8H PRN nausea and 05/07/24 08/13/24 Rx tablet vomiting #30 tabs promethazine 25 mg tablet 25 mg PO TID PRN nausea and 05/07/24 08/13/24 Rx vomiting #90 tabs ferumoxytol 510 mg/17 mL (30 510 mg (17 mL) IV Q3D 2 doses 07/23/24 08/13/24 Rx mg/mL) intravenous solution (Feraheme) Allergies Allergy/AdvReac Type Severity Reaction Status Date / Time adhesive Allergy Mild Rash Verified 08/13/24 11:00 nickel Allergy Mild Rash Verified 08/13/24 11:00 OB Exam Vital signs Blood Pressure: 130/60 Pulse Rate: 108 Temperature: 97.5 F Objective Labs 08/17/24 18:05 Labs: Laboratory Results - last 24 hr 08/17/24 18:05 WBC 9.1 RBC 4.54 Hgb 13.5 Hct 40.2 MCV 88.5 MCH 29.7 MCHC 33.6 RDW 13.1 Plt Count 197 Neut % (Auto) 72.7 Lymph % (Auto) 20.6 L [place] % (Auto) 5.9 Eos % (Auto) 0.3 L Baso % (Auto) 0.5 Neut # (Auto) 6600 Lymph # (Auto) 1900 [place] # (Auto) 500 Eos # (Auto) 0 Baso # (Auto) 0 Blood Type A Positive Antibody Screen Negative Assessment and Plan Assessment and Plan Assessment and Plan narrative: This is a 33 yo at 39w1d here for IOL. complicated by AMA (turning 34 tomorrow 08/18), hx of gastric sleeve surgery (12/2022), PCOS, depression/anxiety, gout, chronic nausea/vomiting, GBS positive, and unstable lie. Most recent growth 3069 grams - 51st percentile on 08/03. Risks/benefits of induction discussed. IOL -portillo catheter and misoprostol 25 mcg placed at 17:30 GBS positive -ampicillin 2g to be given when active labor or ROM, then 1g q4 until delivery Unstable Lie -Vertex position confirmed on BSUS -Will confirm as needed prn Depression/Anxiety -continue wellbutrin/sertraline Gout -Continue daily colchicine for prevention Time-Based Coding :: 45 minutes spent with patient and on the chart (including review of chart, obtaining history, exam, reviewing outside data, placing orders, documenting exam and treatment plan, and counseling patient) on 08/17.
[2024-08-17 20:45] VITALS: BP 130/60; PULSE 108; TEMP 36.4
[2024-08-17] MEDS: ONDANSETRON 4 MG/2 ML INJ IV (21:04)
[2024-08-17] MEDS: SERTRALINE 50 MG TABLET PO (22:45)
[2024-08-18] MEDS: miSOPROStoL 25 MCG TABLET VAG (04:31)
[2024-08-18] MEDS: LACTATED RINGERS 1,000 ML 100 ML IV (08:09)
[2024-08-18] MEDS: AMPICILLIN 2,000 MG in SODIUM CHLORIDE 0.9% 100 ML 200 MG IV (08:10)
--- NOTE | 2024-08-18 08:32 | PM.OBPNLAB ---
Date/Time Date Patient Seen: 08/18/24 Time Patient Seen: 07:45 Pain Control Pain control: tolerating well Pelvic Exam Dilation (cm): 5 Effacement (%): 70 station: -2 Amniotic membrane status: Ruptured Comments: AROM with check Contractions Contractions on admission: irregular Monitor mode: External Contraction frequency (min): 5 Contraction pattern: Regular Contraction intensity: Mild Status status: Category l Heart Rate Baseline: 135 Monitor Accelerations: Present Monitor Decelerations: Absent Monitor Variability: Moderate Assessment and Plan Assessment: induction ongoing Plan: continuous present management Comments: IOL for AMA -s/p portillo catheter and vag miso x3 doses -5/70/-2 with good head application, AROM at time of check -start antibiotics for GBS now -start pitocin if contractions space
[2024-08-18] MEDS: fentaNYL 100 MCG/2 ML INJ 25 MCG IV (08:40)
--- NOTE | 2024-08-18 09:40 | PM.AN.REGBLK ---
Regional Block Pre-procedure PMH/ROS narrative: active labor ASA Class: III Labs: Hct 40.2 % (36-46) 08/17/24 18:05 Plt Count 197 X10^3/uL (150-400) 08/17/24 18:05 Medications: Current Medications Generic Name Dose Route Start Last Admin Trade Name Freq PRN Reason Stop Dose Admin Bupropion HCl 300 mg 08/18/24 09:00 Bupropion Xl 150 Mg Tab PO DAILY MULU Carboprost Tromethamine 250 mcg 08/17/24 17:28 Carboprost 250 Mcg/Ml Ampul IM Q90M PRN Bleeding Carboprost Tromethamine 250 mcg 08/17/24 20:46 Carboprost 250 Mcg/Ml Ampul IM Q90M PRN Bleeding Colchicine 0.6 mg 08/17/24 20:38 Colchicine 0.6 Mg Tablet PO DAILY PRN Gout Flare Fentanyl 25 mcg 08/18/24 09:38 Fentanyl 100 Mcg/2 Ml Inj IV 08/18/24 09:39 NOW ONE Oxytocin/Lactated Ringer's 30 unit in 500 mls @ 200 mls/hr 08/17/24 17:28 Oxytocin Premix IV CONT PRN Bleeding Protocol Tranexamic Acid 1,000 mg/ 100 mls @ 600 mls/hr 08/17/24 17:28 Sodium Chloride IV NOW PRN Bleeding Oxytocin/Lactated Ringer's 30 unit in 500 mls @ 200 mls/hr 08/17/24 20:46 Oxytocin Premix IV CONT PRN Bleeding Protocol Tranexamic Acid 1,000 mg/ 100 mls @ 600 mls/hr 08/17/24 20:46 Sodium Chloride IV NOW PRN Bleeding Ampicillin Sodium 1,000 mg/ 100 mls @ 200 mls/hr 08/18/24 12:00 Sodium Chloride IV Q4H MULU Lidocaine HCl 20 ml 08/17/24 17:28 Lidocaine 1% 20 Ml INJ INTRA-OP PRN Post Delivery Lidocaine HCl 20 ml 08/17/24 20:46 Lidocaine 1% 20 Ml INJ INTRA-OP PRN Post Delivery Methylergonovine Maleate 0.2 mg 08/17/24 17:28 Methylergonovine 0.2 Mg Tablet PO Q6HR PRN Heavy Bleeding Methylergonovine Maleate 0.2 mg 08/17/24 17:28 Methylergonovine 0.2 Mg/Ml Vial IM NOW PRN Bleeding Methylergonovine Maleate 0.2 mg 08/17/24 20:46 Methylergonovine 0.2 Mg Tablet PO Q6HR PRN Heavy Bleeding Methylergonovine Maleate 0.2 mg 08/17/24 20:46 Methylergonovine 0.2 Mg/Ml Vial IM NOW PRN Bleeding Mineral Oil 30 ml 08/17/24 17:28 Mineral Oil 30 Ml Udc TOP PRN PRN Version Mineral Oil 30 ml 08/17/24 20:46 Mineral Oil 30 Ml Udc TOP PRN PRN Version Misoprostol 800 mcg 08/17/24 17:28 Misoprostol 200 Mcg Tablet [place] NOW PRN Bleeding Misoprostol 400 mcg 08/17/24 17:28 Misoprostol 200 Mcg Tablet SL NOW PRN Bleeding Misoprostol 25 mcg 08/17/24 17:28 08/18/24 04:31 Misoprostol 25 Mcg Tablet VAG 25 mcg Q4H PRN Administration cervical ripening Misoprostol 800 mcg 08/17/24 20:46 Misoprostol 200 Mcg Tablet [place] NOW PRN Bleeding Misoprostol 400 mcg 08/17/24 20:46 Misoprostol 200 Mcg Tablet SL NOW PRN Bleeding Naloxone HCl 0.2 mg 08/17/24 17:28 Naloxone 0.4 Mg/Ml Vial IV Q2MIN PRN Opiate Reversal Naloxone HCl 0.2 mg 08/17/24 20:46 Naloxone 0.4 Mg/Ml Vial IV Q2MIN PRN Opiate Reversal Ondansetron HCl 4 mg 08/17/24 20:42 08/17/24 21:04 Ondansetron 4 Mg/2 Ml Inj IV 4 mg Q4HR PRN Administration Nausea And Vomiting Oxytocin 10 unit 08/17/24 17:28 Oxytocin 10 Unit/Ml Vial IM NOW PRN Bleeding Oxytocin 10 unit 08/17/24 20:46 Oxytocin 10 Unit/Ml Vial IM NOW PRN Bleeding Sertraline HCl 50 mg 08/17/24 22:30 08/17/24 22:45 Sertraline 50 Mg Tablet PO 50 mg BEDTIME MULU Administration Allergies: Allergies Allergy/AdvReac Type Severity Reaction Status Date / Time adhesive Allergy Mild Rash Verified 08/13/24 11:00 nickel Allergy Mild Rash Verified 08/13/24 11:00 Procedure Insertion date: 08/18/24 Insertion time: 08:53 Prep/Local: betadine x3 (chloraprep) and 1% lidocaine Interspace: l3 l4 Patient position: sitting Needle: 17 gauge Tuohy Loss of resistance with: saline KASSIE at (cm): 6 Catheter placed at SKIN (cm): 15 Catheter in SPACE (cm): 9 Sensory level: t10 Initial Medications TEST DOSE time: 08:54 TEST DOSE: 1.5% lidocaine with epinephrine 1:200k (mL): 3 BOLUS DOSE time: 08:59 BOLUS DOSE (mL): 6 BOLUS DOSE med: 0.125% bupivacaine with fentanyl 10 mcg/mL Infusion INFUSION: 0.0625% bupivacaine and with fentanyl 2 mcg/mL Initial rate (mL/hr): 9 Post-procedure Anesthesia date START: 08/18/24 Anesthesia time START: 08:45
[2024-08-18] MEDS: OXYTOCIN PREMIX 30 UNIT/500 ML PLAST..BAG 200 UNIT IV (11:40)
--- NOTE | 2024-08-18 12:21 | PM.OBPRVD ---
Events: Labor Induction Labor & Delivery Delivery date: 08/18/24 Delivery Time: 11:27 Cervical ripening method: per Portillo bulb protocol (plus Miso) Induction method: AROM Delivery monitor: external FHT Route of delivery: L&D Laceration Description: Periurethral - 1st Degree and Perineal - 2nd Degree Delivery repair: vicryl Estimated blood loss (mL): 200 Anesthesia Type: Epidural Complications: none Narrative: Patient progressed to complete following portillo bulb, 3 doses of misoprostol and AROM. She had an epidural. Over two contractions a female was born over an intact perineum. heart tones were reassuring throughout. Cord clamping was delayed 5 minutes. Cord was clamped and cut by dad. Placenta delivered spontaneously with gentle traction. Pitocin was started. There was a perineal and right periuretheral laceration that were repaired with vicryl suture. Plan for aftercare: Routine care
--- NOTE | 2024-08-18 16:09 | P.PN_ITS ---
Subjective Subjective Interval history: pt verbalizes content with epidural Objective Labs 08/17/24 18:05 Labs: Laboratory Results - last 24 hr 08/17/24 18:05 WBC 9.1 RBC 4.54 Hgb 13.5 Hct 40.2 MCV 88.5 MCH 29.7 MCHC 33.6 RDW 13.1 Plt Count 197 Neut % (Auto) 72.7 Lymph % (Auto) 20.6 L [place] % (Auto) 5.9 Eos % (Auto) 0.3 L Baso % (Auto) 0.5 Neut # (Auto) 6600 Lymph # (Auto) 1900 [place] # (Auto) 500 Eos # (Auto) 0 Baso # (Auto) 0 Blood Type A Positive Antibody Screen Negative PFS Medical History (Updated 07/24/24 @ 14:31 by Tatyana Steven MD) GERD (gastroesophageal reflux disease) PCOS (polycystic ovarian syndrome) (~2007) Nenwx-Twyfysuzj-Ffpab (WPW) pattern Surgical History (Updated 07/16/24 @ 11:25 by Tatyana Steven MD) Anesthesia H/O endoscopy [place] teeth extracted History of cholecystectomy (~2018) History of cardiac radiofrequency ablation H/O gastric sleeve (~2022) Family History (Updated 02/16/24 @ 15:51 by Kellie Rivera) Mother Hypertension Skin cancer Father Lung cancer Hypertension Heart disease Myocardial infarction Grandmother Breast cancer Grandfather Pancreatic cancer Grandmother Heart disease Hx of CABG Grandfather Diabetes mellitus Kidney failure Aunt Hx of migraines Family/Other Multiple sclerosis Brother No problems noted. 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/hazards: Yes special brent needs: No travel history: over 6 months ago seatbelt use: always helmet use: Yes water heater temp set < 120 deg: Yes working smoke detector in home: Yes fire extinguisher in home: Yes carbon monox detector in home: Yes firearms in home: Yes (Will get a safe before baby is born) do you feel safe at home: Yes Smoking Status: Never smoker Tobacco: How many years used: 1 second hand exposure: No alcohol intake: former (rarely when not ) substance use type: does not use during the past year weight has: decreased > 10 lbs (Gastric sleeve surgery 12/2022) well-balanced diet: daily or most days daily servings fruits/ve or more times/day caffeine: Yes (aware of 200mg limit) Type(s) of exercise: walking and occasional exercise
[2024-08-18] MEDS: DERMOPLAST SPRAY 20% 60 ML 1 SPRAY TOP (17:01)
[2024-08-18] MEDS: WITCH HAZEL/GLYCERIN PADS 1 EACH TOP (17:01)
[2024-08-18] MEDS: IBUPROFEN 600 MG TABLET PO (21:03)
[2024-08-18] MEDS: SERTRALINE 50 MG TABLET PO (21:25)
[2024-08-19] MEDS: IBUPROFEN 600 MG TABLET PO ×2 (06:12→11:54)
[2024-08-19] MEDS: buPROPion XL 150 MG TAB 300 MG PO (08:44)
[2024-08-19] MEDS: PRENATAL VIT,CALC/IRON/FOLIC 1 TABLET 1 TAB PO (08:44)
[2024-08-19] MEDS: DOCUSATE 100 MG CAPSULE PO (08:44)
[2024-08-19] MEDS: polyethylene glycoL 3350 17 GM POWD.PACK PO (08:45)
[2024-08-19] MEDS: COLCHICINE 0.6 MG TABLET PO (08:45)
[2024-08-19] MEDS: PANTOPRAZOLE DR 40 MG TABLET PO (08:46)
--- NOTE | 2024-08-19 10:30 | PM.OBDS.1 ---
Discharge Providers Provider Date of admission: 08/17/24 16:54 Discharge Date: 08/19/24 Primary care physician: Tatyana Steven MD Consults: 08/17/24 17:29 Consult to Anesthesiology Urgent Comment: epidural Consulting Provider: Tatyana Steven Reason for consultation: Epidural Has provider been notified: No 08/17/24 20:46 Consult to Anesthesiology Urgent Comment: Consulting Provider: Anesthesiologist Reason for consultation: Epidural 08/19/24 12:36 Consult to Distillery Supervisor Routine Comment: Discharge provider: Tatyana Steven MD Summary Hospital Course Date Patient Seen: 08/19/24 Time Patient Seen: 10:00 Diagnoses: Term Hospital Course: Patient is a 34 yo G2 now P1 who delivered at 39w2d following IOL for AMA, hx of gastric sleeve and unstable lie. She was GBS positive and received 3 hours of antibiotic prophylaxis. She had a perineal and periurethral tear that were repaired with suture. Her bleeding is minimal. Pain is well controlled. She is without difficulty. Peripartum Data Delivery Method: Natural Vaginal Laceration Description: Periurethral - 1st Degree and Perineal - 2nd Degree complications: none Status at Discharge Cognitive/behavioral status at discharge: oriented Overall status at discharge: patient is back to baseline Time Spent with Patient Time attestation: Total time spent providing and/or coordinating discharge services: 40 minutes Time spent: Greater than 30 minutes Objective Labs 08/17/24 18:05 Exam Narrative Exam Narrative: Vitals wnl. Breathing easily. NAD. Discharge Plan Discharge Plan Patient Disposition: Home Discharge orders & Medications Prescriptions: Continued iron, carbonyl 25 mg iron tablet PO pyridoxine (vitamin B6) [Vitamin B-6] 100 mg tablet 100 mg PO Unisom (doxylamine) 25 mg tablet 12.5 mg PO DAILY Vitamin Plus Low Iron 27 mg iron- 1 mg tablet 1 tab PO DAILY colchicine 0.6 mg tablet 0.6 mg PO DAILY Qty: 90 3RF ondansetron 4 mg tablet,disintegrating 4 mg PO Q8H PRN (Reason: nausea and vomiting) Qty: 30 3RF promethazine 25 mg tablet 25 mg PO TID PRN (Reason: nausea and vomiting) Qty: 90 0RF hydroxyzine HCl 25 mg tablet 25 mg PO TID PRN (Reason: anxiety) Qty: 90 0RF ferumoxytol [Feraheme] 510 mg/17 mL (30 mg/mL) solution 510 mg IV Q3D sertraline 50 mg tablet 50 mg PO DAILY bupropion HCl 300 mg tablet extended release 24 hr 300 mg PO DAILY lansoprazole 30 mg capsule,delayed release(DR/EC) 30 mg PO DAILY ondansetron 8 mg tablet,disintegrating 8 mg PO 3XD sour francis extract 1,000 mg capsule PO DAILY rizatriptan 5 mg tablet,disintegrating See Rx Instructions PO .COMPLEX Rx Instructions: take 1 tablet at onset of headache; if no relief, may repeat 1 tablet after at least 2 hrs PO Discontinued prednisone 20 mg tablet 20 mg PO DAILY Qty: 7 0RF prednisone 10 mg tablet 10 mg PO DAILY Qty: 7 0RF prednisone 5 mg tablet 5 mg PO DAILY Qty: 7 0RF prednisone 2.5 mg tablet 2.5 mg PO DAILY Qty: 7 0RF prednisone 20 mg tablet 40 mg PO DAILY Qty: 10 0RF Follow up/Referrals: Tatyana Steven MD [Primary Care Provider] - Visit Report/Discharge Packet Stand Alone Forms: Patient Portal/API, Stroke Signs & Symptoms Discharge Data Primary Care Provider: Tatyana Steven
[2024-08-19 14:09] VITALS: BP 130/60; PULSE 108; TEMP 36.4
== END 2024-08-19 13:50 | disposition home or self-care (01) | DRG 807 ==
PROVIDERS: Admitting Provider Student in an Organized Health Care Education/Training Program; PCP Student in an Organized Health Care Education/Training Program; Referring Provider Student in an Organized Health Care Education/Training Program; Visit Provider Student in an Organized Health Care Education/Training Program
DX: O99.824 Streptococcus B carrier state complicating childbirth (principal); Z37.0 Single live birth; Z3A.39 39 weeks gestation of pregnancy; O32.0XX0 Maternal care for unstable lie, not applicable or unspecified; O70.1 Second degree perineal laceration during delivery
CPT/HCPCS: 59050; 59200; 59400; 85025; 86850; 86900; 86901; G0379; J0290; J2405; J2590; J3010

== ENCOUNTER → 2024-10-09 08:49 | Outpatient (CLI) | payer OTHER, SELFPAY ==
[2024-10-09 09:48] LABS: Add Manual Diff / Slide Review NO; Basophils Absolute Auto 100 /uL (0-100); Basophils Percent Auto 0.7 % (0-2); Eosinophils Absolute Auto 300 /uL (0-450); Eosinophils Percent Auto 3.5 % (2-4); Hematocrit 41.8 % (36-46); Hemoglobin 14.3 g/dL (12.0-16.0); Lymphocytes Absolute Auto 3000 /uL (1100-4500); Lymphocytes Percent Auto 39.5 % (25-40); Mean Corpuscular HGB Conc 34.2 % (30-36); Mean Corpuscular Hemoglobin 29.1 PG (26-34); Mean Corpuscular Volume 85.2 fL (80-100); Monocytes Absolute Auto 400 /uL (0-900); Monocytes Percent Auto 5.5 % (3-14); Neutrophils Absolute Auto 3900 /uL (1500-7000); Neutrophils Percent Auto 50.8 % (50-75); Platelet Count 244 X10^3/uL (150-400); Red Blood Cell Count 4.91 X10^6/uL (4.0-5.2); Red Cell Distribution Width 13.2 % (11.6-14.8); White Blood Cell Count 7.7 X10^3/uL (4.5-11.0)
[2024-10-09 10:09] LABS: HEMOLYSIS < 15 (0-50); Iron 138 ug/dL (37-170)
[2024-10-09 10:12] LABS: Alanine Aminotransferase 58 IU/L (<35); Albumin 4.5 g/dL (3.5-5.0); Albumin Globulin Ratio 1.9 (1.0-2.8); Alkaline Phosphatase 51 U/L (38-126); Aspartate Aminotransferase 36 IU/L (14-36); BUN Creatinine Ratio 18.9 (6-22); Bilirubin Total 0.5 mg/dL (0.2-1.3); Blood Urea Nitrogen 20 mg/dL (7-17); Calcium 9.7 mg/dL (8.4-10.2); Carbon Dioxide 27 mmol/L (22-32); Chloride 105 mmol/L (98-107); Estimated Glomerular Filt Rate > 60 mL/min (>60); Globulin 2.4 g/dL (1.7-4.1); Glucose 86 mg/dL (70-100); HEMOLYSIS < 15 (0-50); Potassium 4.6 mmol/L (3.4-5.1); Sodium 141 mmol/L (137-145); Total Protein 6.9 g/dL (6.3-8.2)
[2024-10-09 10:13] LABS: Hemoglobin A1C% w Est Avg Glu 5.1 % (4.0-6.0)
[2024-10-09 10:24] LABS: Percent Iron Saturation 69 % (15-50); Total Iron Binding Capacity 200 ug/dL (265-497); Transferrin 185 mg/dL (206-381)
[2024-10-09 10:27] LABS: Follicle Stimulating Hormone 6.51 mIU/mL; Luteinizing Hormone 1.08 mIU/mL
[2024-10-09 10:31] LABS: Free T3, Triiodothyronine Free 3.59 pg/mL (2.77-5.27); Free T4, Direct Thyroxine 0.66 ng/dL (0.78-2.19)
[2024-10-09 10:42] LABS: Estradiol, Total 32.3 pg/mL
[2024-10-09 10:44] LABS: Thyroid Stimulating Hormone 2.55 uIU/mL (0.47-4.68)
[2024-10-09 10:51] LABS: Ferritin 141 ng/mL (6-137)
[2024-10-09 11:21] LABS: Folate 14.4 ng/mL (2.76-20.0); Vitamin B12 774 pg/mL (239-931)
[2024-10-10 08:08] LABS: Thyroid Peroxidase Antibodies 16 IU/mL (0-34)
[2024-10-10 09:36] LABS: Insulin Level Total 6.8 uIU/mL (2.6-24.9)
[2024-10-11 15:06] LABS: Selenium 132 ug/L (93-198)
== END ==
PROVIDERS: PCP Student in an Organized Health Care Education/Training Program; Referring Provider Student in an Organized Health Care Education/Training Program; Visit Provider Student in an Organized Health Care Education/Training Program
DX: E28.2 Polycystic ovarian syndrome (principal); Z90.3 Acquired absence of stomach [part of]; O92.79 Other disorders of lactation
CPT/HCPCS: 36415; 80053; 82607; 82627; 82670; 82728; 82746; 83001; 83002; 83036; 83525; 83540; 83550; 83735; 84255; 84439; 84443; 84481; 84630; 85025; 86376